=== PATIENT | female | born 1975 | race Asian ===

== ENCOUNTER 2024-10-29 10:43 | Outpatient (AMB) | payer MEDICAID, SELFPAY ==
--- NOTE | 2024-10-29 10:57 | A.OFFVIS_ITS ---
Intake Visit Reasons: Strep B UTIs Intake Note: PT PRESENTS TODAY FOR: NEW PT STREP B UTI UROLOGY MEDICATIONS: NONE BLOOD THINNERS: NONE Production Scheduler Required: Yes Accompanied by: Son Allergies No Known Allergies Allergy (Verified 10/29/24 11:02) HPI Comments Details: Ioana is a pleasant Afghani female. She is a patient of [facility]. She is seen for the following urologic conditions - persistent UTI symptoms Accompanied by his son Translation provided by qualified medical record librarians teacher - Dinora Primary symptom of urinary urge with frequency Minimal leakage Concerned about kidney pain Has been told she has a descending uterus Information from primary care indicates group B strep UTI On examination her kidney pain is musculoskeletal paraspinal muscle and sacrospinous ligament pain She is encouraged to increase her activity levels to maintain muscle mass UA today normal Bladder urgency symptoms could be managed by lifestyle changes including weight loss, dietary changes minimizing coffee, chocolate, spicy foods At this point in time does not seem to rise to a level requiring Pharmaceutical intervention Reassurance provided P.r.n. follow-up Review of Systems Const Denies chills and Denies fever(s) Card Reports no additional complaints and Denies syncope Resp Denies cough GI Denies abdominal pain and Denies heartburn Reports as per HPI and Denies change in libido Neuro Denies syncope Psych Denies change in libido Endo Denies change in libido Physical Exam Const General: cooperative, healthy appearing, comfortable and no acute distress Orientation/consciousness: patient oriented x3 HEENT Face and sinus: Yes normal facial exam Mouth: moist mucous membranes Neck Neck: Yes normal visual inspection, Yes full ROM and Yes trachea midline Chest Chest palpation & inspection: normal inspection of the chest Resp Effort & Inspection: normal respiratory effort, able to speak in complete sentences and no respiratory distress GI Inspection: Yes normal to inspection Back/Spine/Pelvis Cervical Spine: normal cervical lordosis Thoracic/Lumbar Spine: thoracic and lumbar spine normal to inspection Skin General skin exam: no rashes or lesions noted Neuro General: patient oriented x3, gait normal, tone normal and moves all extremities Extrem General: Yes normal to inspection and Yes capillary refill normal Results AMB Urinalysis, Automated UA Leukoctes 0 Debby/uL Last Edit by CANDELARIA Padron on 10/29/24 11:09 UA Nitrite Negative Last Edit by CANDELARIA Padron on 10/29/24 11:09 UA Urobilinogen 3.5 mg/dL Last Edit by Keerthi Dahl [facility] on 10/29/24 11:0 9 UA Protein 0 mg/dL Last Edit by Keerthi Dahl [facility] on 10/29/24 11:09 UA pH 6.0 Last Edit by Keerthi Dahl [facility] on 10/29/24 11:09 UA Blood 0 Edgar/uL Last Edit by Keerthi Dahl [facility] on 10/29/24 11:09 UA Specific [place] 1.005 Last Edit by Keerthi Dahl, [facility] on 10/29/24 11: 09 UA Ketone Negative Last Edit by Keerthi Dahl, [facility] on 10/29/24 11:09 UA Bilirubin 0 mg/dL Last Edit by Keerthi Dahl [facility] on 10/29/24 11:09 UA Glucose 0 mg/dL Last Edit by Keerthi Dahl [facility] on 10/29/24 11:09 Results Reviewed Results Reviewed: Laboratory Last Values Urine pH (Auto) 6.0 10/29/24 11:09 Specific [place] (Auto) 1.005 10/29/24 11:09 Urine Protein (Auto) 0 mg/dL 10/29/24 11:09 Glucose (UA)(Auto) 0 mg/dL 10/29/24 11:09 Urine Ketones (Auto) Negative 10/29/24 11:09 Urine Blood (Auto) 0 Edgar/uL 10/29/24 11:09 Urine Nitrite (Auto) Negative 10/29/24 11:09 Urine Bilirubin (Auto) 0 mg/dL 10/29/24 11:09 Urine Urobilinogen (Auto) 3.5 mg/dL 10/29/24 11:09 Leukocyte Esterase (Auto) 0 Debby/uL 10/29/24 11:09 Assessment & Plan Assessment & Plan (1) Urinary urgency: Code(s): R39.15 - Urgency of urination Category: Medical Plan P.r.n. follow-up Orders: Orders AMB Urinalysis Automated Today Z13.9 - Encounter for screening, unspecified Patient Instructions: This note is constructed using voice recognition software. While every effort has been made to ensure accuracy phone operator errors may have been included. Imaging studies, laboratory and physical exam results were discussed and reviewed in detail. No major barriers to patient understanding were identified. An opportunity to ask questions regarding the treatment plan was provided. All questions were answered. The patient expressed understanding and agreement with the above treatment plan. The patient is aware they should contact our office by phone for worsening of their current condition or the appearance of new urologic symptoms. Compliance is encouraged with any medications and followup testing that is ordered. It is a privilege to participate in the urologic care of your patient. If you have any questions or concerns regarding treatment for the above conditions, or other urologic issues, please do not hesitate to contact me. The office telephone contact is [phone]. Sincerely, Dr Octaviano Morrow MD, [facility] - Urology Compassionate Specialist Care for the Genitourinary System Coding Level of Care Code New Pt Level 3 (03865) Diagnoses Urinary urgency R39.15
--- OUTSIDE RECORDS SUMMARY | 2024-10-29 12:14 | XMS_ITS | Clinical Summary ---
Author Organization [employer] [facility] Address [address] [place] [address] Care Team Providers Care Safety Sitter Name Role Phone Unavailable Primary Care Provider Unavailabl e Encounters Date Type Department Care Team Description 09/17/2024 Population Health Risk Score [facility] Care [facility] (C3) Department [address] [place] [id number] Provider, Population Health Generic from Last 3 Months Social History Tobacco Use Types Packs/Day Years Used Date Smoking Tobacco: Never Assessed Comments Unknown Sex and Gender Information Value Date Recorded Sex Assigned at Not on file Legal Sex Female 9:30 PM EDT Gender Identity Not on file Sexual Orientation Not on file Plan of Treatment Health Maintenance Due Date Last Done Comments CT Colonography 1973 Colonoscopy 1973 Colorectal Cancer Screening 1973 Depression Screening 1973 FIT DNA/Cologuard 1973 FIT 1973 FOBT 1973 Lipid Panel 1973 SDOH Screening 1973 Sigmoidoscopy 1973 Disability Screening 1973 Alcohol/Substance Use Screening 1985 Tobacco Screening 1985 Family Planning (PISQ) 1988 Hepatitis C Screening 06/18/1991 Pap Smear 1994 Cervical Cancer Screening 06/18/2003 HPV/Cotest 06/18/2003 Mammogram 2013 IPV Vaccines (3 of 3 - Adult catch-up series) 06/26/2022 12/27/2021, 08/20/2021 Zoster Vaccines (1 of 2) 06/18/2023 COVID-19 Vaccine (5 - season) 2024 07/20/2022, 12/27/2021, 09/13/2021, Additional history exists Influenza Vaccine (#1) 2024 11/16/2023, 2021 DTaP/Tdap/Td Vaccines (3 - Td or Tdap) 05/18/2032 05/18/2022, 08/20/2021 RSV Patients and Patients Aged 60 years or older (1 - 1-dose 75+ series) 2048 Hepatitis B Vaccines Completed 03/16/2022, 12/27/2021, 08/20/2021 HIV Screening Completed 05/18/2022, 05/18/2022 Pneumococcal Vaccine: 50+ Years Completed 07/20/2022 HIB Vaccines Aged Out No longer eligi ble based on patient's age to complete this topic HPV Vaccines Aged Out No longer eligi ble based on patient's age to complete this topic Hepatitis A Vaccines Aged Out No long er eligible based on patient's age to complete this topic Meningococcal B Vaccine Aged Out No l onger eligible based on patient's age to complete this topic Meningococcal Vaccine Aged Out No flo janice eligible based on patient's age to complete this topic RSV under 20 months Aged Out No longe r eligible based on patient's age to complete this topic Rotavirus Vaccines Aged Out No longer eligible based on patient's age to complete this topic
--- OUTSIDE RECORDS SUMMARY | 2024-10-29 12:15 | XMS_ITS | Clinical Summary ---
Author Organization [address] [facility] Address [address] [place] [address] Phone Care Team Providers Care Job Boss Name Role Phone Tori Butler ORTHOTIST PROSTHETIST Primary Care Provider [phone] Allergies No known active allergies Medications metFORMIN (GLUCOPHAGE) 500 mg tablet Take 1 tablet (500 mg total) by mouth. 02/15/2024 Active empagliflozin (JARDIANCE) 25 mg tablet Take 1 tablet (25 mg total) by mouth. 06/06/2024 Active Social History Tobacco Use Types Packs/Day Years Used Date Smoking Tobacco: Never Assessed Comments Unknown Sex and Gender Information Value Date Recorded Sex Assigned at Not on file Legal Sex Female 9:11 PM EST Gender Identity Not on file Sexual Orientation Not on file Last Filed Vital Signs Vital Sign Reading Time Taken Comments Blood Pressure 128/80 07/16/2024 1:57 PM EDT Pulse 80 07/16/2024 1:57 PM EDT Temperature - - Respiratory Rate - - Oxygen Saturation - - Inhaled Oxygen Concentration - - Weight 86.9 kg (191 lb 8 oz) 07/16/2024 1:57 PM EDT Height 157.5 cm (5' 2 ) 07/16/2024 1:57 PM EDT Body Mass Index 35.03 07/16/2024 1:57 PM EDT Plan of Treatment Health Maintenance Due Date Last Done Comments Breast Cancer Screening 1973 Diabetes: Annual Foot Exam 06/18/1983 Diabetes: Annual Retina Eye Exam 06/18/1983 Cervical Cancer Screening: Pap Smear 1994 IPV Vaccines (3 of 3 - Adult catch-up series) 06/26/2022 12/27/2021, 08/20/2021 Colorectal Cancer Screening: Colonoscopy 03/24/2023 HIV Screening 03/24/2023 Social Influencers of Health Screening 03/24/2023 Zoster Vaccines (1 of 2) 06/18/2023 09/19/2021, 07/29 Depression Screening 02/28/2024 Diabetes: Annual Urine Albumin-Creatinine Ratio (uACR) 10/26/2024 10/27/2023, 07/20/2022 COVID-19 Vaccine ( season) 2024 07/20/2022, 12/27/2021, 09/13/2021, Additional history exists Influenza Vaccine (#1) 2024 11/16/2023, 2021 Diabetes: Blood Sugar Control Test (HGBA1C) 01/28/2025 07/29/2024 Diabetes: Annual GFR (Glomerular Filtration Rate) 06/24/2025 06/24/2024 Cholesterol Screening (Lipid Panel) 10/26/2028 10/27/2023, 10/27/2023, 07/20/2022 DTaP,Tdap,and Td Vaccines (3 - Td or Tdap) 05/18/2032 05/18/2022, 08/20/2021 MMR Vaccines Aged Out 09/19/2021, 08/20/2021 No lo nger eligible based on patient's age to complete this topic Varicella Vaccines Aged Out 09/19/2021, 08/20/2021 No longer eligible based on patient's age to complete this topic Hepatitis B Vaccines Completed 03/16/2022, 12/27/2021, 08/20/2021 Hepatitis C Screening Completed 05/18/2022 Pneumococcal Vaccine: 50+ Years Completed 07/20/2022 HIB Vaccines Aged Out No longer eligi ble based on patient's age to complete this topic HPV Vaccines Aged Out No longer eligi ble based on patient's age to complete this topic Hepatitis A Vaccines Aged Out No long er eligible based on patient's age to complete this topic Meningococcal ACWY Vaccine Aged Out N o longer eligible based on patient's age to complete this topic Meningococcal B Vaccine Aged Out No l onger eligible based on patient's age to complete this topic RSV Immunization Patients Under 20 months Aged Out No longer eligible based on patient's age to complete this topic Insurance MEDICAID - [place] Care Teams Job Boss Relationship Specialty Start Date End Date Tori Butler NP [address] [place] [address] PCP - General Family Medicine 07/04/24
--- OUTSIDE RECORDS SUMMARY | 2024-10-29 12:15 | XMS_ITS | Clinical Summary ---
Author Organization [facility] Address [address] [place] [address] Care Team Providers Care Vocational Psychologist Name Role Phone Sophie Garcia SENIOR C DEVELOPER Primary Care Provider [phone] Source Comments PLEASE NOTE, if this patient is a minor, it may be UNLAWFUL to discuss sensitive information that is contained in these records (such as FAMILY PLANNING, MENTAL HEALTH or SUBSTANCE ABUSE) with the minor patient's parent or other person without the patient's specific authorization.[facility] Allergies No known active allergies Medications calcium carbonate-vit D3-min 600 mg calcium- 400 unit tabletIndicati ons:Type 2 diabetes mellitus without complication, without long-term current use of insulin ([facility]) Take 1 Tablet by mouth 2 (two) times daily 90 Tablet 1 3 Active diclofenac sodium (VOLTAREN) 1 % gelIndications :Chronic bilateral low back pain with bilateral sciatica,Chron ic pain of left knee Apply 2 g topically 2 (two) times daily 200 g 1 3 Active blood-glucose meter monitoring kitIndications :Type 2 diabetes mellitus without complication, without long-term current use of insulin ([facility]) as needed for blood glucose monitoring Dispense Freeystyle 1 Each 3 Active blood sugar diagnostic (FREESTYLE LITE STRIPS) strips 1 Each daily. 100 Each 4 Active lancets (FREESTYLE LANCETS) 28 gauge Check glucose once daily 100 Each 5 4 Active lancing device misc 1 Device by miscellaneous route once daily 1 Each 1 4 Active alcohol swabs (ALCOHOL PADS) Use once daily 100 Each 11 4 Active acetaminophen (TYLENOL) 500 mg tabletIndicati ons:Caries Take 1 Tablet by mouth every 6 (six) hours as needed for pain 20 Tablet 4 Active hydrocortisone 0.5 % creamIndicatio ns:Generalized abdominal pain Apply topically 2 (two) times daily At rash at legs only with itching. 30 g 1 4 Active atorvastatin (LIPITOR) 10 mg tablet Take 1 Tablet by mouth nightly at bedtime 90 Tablet 2 4 Active CALCIUM ANTACID 300 mg (750 mg) chewable tabletIndicati ons:Dyspepsia Place 1 Tablet into mouth, chew and swallow once daily as needed for heartburn 120 Tablet 1 4 Active omeprazole (PRILOSEC) [address] capsuleIndicat ions:H. pylori infection TAKE ONE CAPSULE BY MOUTH TWICE DAILY BEFORE a meal 60 Capsule 1 4 Active empagliflozin (JARDIANCE) 25 mg tabIndications :Type 2 diabetes mellitus without complication, without long-term current use of insulin ([facility]) Take 1 Tablet by mouth every morning For diabetes 30 Tablet 5 5 Active phenazopyridin e (PYRIDIUM) 100 mg tabletIndicati ons:Dysuria Take 1 Tablet by mouth 2 (two) times daily 6 Tablet 5 Active sulfamethoxazo le-trimethopri m (BACTRIM DS) 800-160 mg per tablet Take 1 Tablet by mouth 2 (two) times daily 6 Tablet 5 Active ibuprofen 600 mg tabletIndicati ons:Chronic bilateral low back pain without sciatica Take 1 Tablet by mouth 3 (three) times daily as needed for pain. 90 Tablet 1 5 Active simethicone (MYLICON) 125 mg chewable tabletIndicati ons:Gas pain,Bloating Place 1 Tablet into mouth, chew and swallow every 6 (six) hours as needed for flatulence. 90 Tablet 1 5 Active metFORMIN (GLUCOPHAGE) 500 mg tabletIndicati ons:Type 2 diabetes mellitus without complication, without long-term current use of insulin ([facility]) TAKE ONE TABLET BY MOUTH TWICE DAILY WITH A MEAL FOR DIABETES 180 Tablet 1 5 Active Active Problems Problem Noted Date Diagnosed Date Periumbilical hernia 06/29/2024 Overview (07/17/2024): 07/16/24 [facility] IMPRESSION: 1.Umbilical hernia without obstruction or gangrene Plan: Observation. 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 06/26/24 CT Urogram IMPRESSION: 3.8 cm periumbilical fat-containing hernia. No urinary tract calculi or suspicious renal or urothelial lesion identified Positive QuantiFERON-TB Gold test 07/27/2022 Overview (07/27/2022): Placed ref to TB clinic Giardia 07/27/2022 History of Helicobacter pylori infection 023 Arthralgia 07/20/2022 Chronic bilateral low back pain without sciatica 07/20/2022 Type 2 diabetes mellitus wit hout complication, without long-term current use of insulin ([facility]) 05/19/2022 Class 2 severe obesity due t o excess calories with serious comorbidity and body mass index (BMI) of 35.0 to 35.9 in adult ([facility]) 05/18/2022 TB lung, latent 05/18/2022 Encounters Date Type Department Care Team Description 08/29/2024 11:00 AM EDT Office Visit [address] [address] Joaquina Carpenter, Jessie Gates, Community Health Worker 08/04/2024 Results Follow-Up [address] [address] Mabel Luu FNP 07/29/2024 3:20 PM EDT Office Visit [address] [address] Mabel Luu FNP from Last 3 Months Immunizations Immunization Administration Dates Next Due COVID-19,SARS-COV-2 VACCINE, UNSPECIFIED (US Admin) 12/27/2021,09/13/2021,08/20/2021 Hep B, Adult/Adol (PJZSNXA-A-NZEQF/RECOMBIVAX-ADULT) 03/16/2022,12/27/2021,08/20/2021 INFLUENZA, SEASONAL, INJECTABLE 08/20/2021 IPV (IPOL) 12/27/2021,08/20/2021 Influenza (FLUBLOK),recombinant,injectable,preservati ve Free 11/16/2023 MMR (MMR II/Priorix) 09/19/2021,08/20/2021 PNEUMOCOCCAL CONJUGATE PCV 20 (Prevnar 20) 07/20 Humansized COVID-19 Vac cine Bivalent, (REDDING PFIZER[employer] COVID-19 VACCINE BIVALENT, (REDDING CAP 07/20/2022 TDAP 08/20/2021 Td (adult), 5 Lf tetanus tox oid (Tenivac), preservative free 05/18/2022 Varicella (Varivax), Live Vaccine 09/19/2021, Family History Medical History Relation Name Comments No Known Problems Brother x3 No Known Problems Father No Known Problems Mother No Known Problems Sister x4 Relation Name Status Comments Brother x3 Alive Daughter x1 Father Alive Mother Alive Sister x4 Alive Son x4 Social History Tobacco Use Types Packs/Day Years Used Date Smoking Tobacco: Never Passive Smoke Exposure: Never Smokeless Tobacco: Never Tobacco Cessation:Counseling Given: Not Answered Alcohol Use Standard Drinks/Week Comments Never 0 (1 standard drink = 0.6 oz pur e alcohol) Social Connections Answer Date Recorded Connectedness 0 10/31/2023 Financial Resource Strain Answer Date R ecorded Financial Resource Strain 0 2022 Stress Answer Date Recorded Stress 0 05/18/2022 Physical Activity Answer Date Recorded Physical Activity 0 05/18/2022 Food Insecurity Answer Date Recorded Food 0 11/23/2023 Transportation Needs Answer Date Record ed Transportation 0 05/18/2022 Housing Stability Answer Date Recorded Housing 0 05/18/2022 Safety and Environment Answer Date Ga rded Safety 0 07/20/2022 Utilities Answer Date Recorded Utilities 0 05/18/2022 Employment Answer Date Recorded Stress 0 07/20/2022 Comments No Sex and Gender Information Value Date Recorded Sex Assigned at Female 05/19/2022 12:03 PM PDT Legal Sex Female 6:03 AM PST Gender Identity Female 05/19/2022 12:03 PM PDT Sexual Orientation Straight 05/19/2022 12 :03 PM PDT Last Filed Vital Signs Vital Sign Reading Time Taken Comments Blood Pressure 120/70 07/29/2024 3:18 PM EDT Pulse 80 07/29/2024 3:18 PM EDT Temperature 36.7 C (98.1 F) 07/29/2024 3:18 PM EDT Respiratory Rate 16 07/29/2024 3:18 PM EDT Oxygen Saturation 98% 07/29/2024 3:18 PM EDT Inhaled Oxygen Concentration - - Weight 88.2 kg (194 lb 6.4 oz) 07/29/2024 3:18 P M EDT Height 157.5 cm (5' 2 ) 06/14/2024 1:16 PM EDT Body Mass Index 35.56 06/14/2024 1:16 PM EDT Plan of Treatment Upcoming Encounters Date Type Department Care Team ([facility] st Contact Info) Description 12/11/2024 10:00 AM EDT Office Visit [facility] [address] [place] [address] Eduardo Sun, [facility] [address] [place] [address] Health Maintenance Due Date Last Done Comments HPV Screening 1973 Pap + HPV 1973 Cervical Cancer Screening 1994 Pap Smear 1994 Breast Cancer Screening (Mammogram) 2013 CT Colonography 2018 Colonoscopy 2018 Colorectal Cancer Screening 2018 FIT/gFOBT 2018 Fecal DNA 2018 Flexible Sigmoidoscopy 2018 Imm-Zoster, Recombinant (1 of 2) 06/18/2023 Dental Prophy 02/12/2024 08/11/2023 Alcohol and Drug Screen 02/28/2024 05/11/2023, 07/20 Dental BW 08/12/2024 08/11/2023, 12/27/2022 Dental Examination 08/12/2024 08/11/2023, 12/27/2022 Dental Perio Charting 08/12/2024 08/11/2023 Lipid Screening 10/26/2024 10/27/2023, 07/20/2022 Urine Albumin Creatinine Ratio Screening 10/26/2024 10/27/2023, 07/20/2022 Imm-Influenza (#1) 2024 11/16/2023, 08/20/2021 Hemoglobin A1c 10/29/2024 07/29/2024, 10/28, 08/11/2023, Additional history exists [id number] ( season) 2024 07/20/2022, 12/27/2021, 09/13/2021, Additional history exists Postponed from 10/29/2023 (Patient postponement) Retinopathy Screening 05/03/2025 05/03/2024, 023 Serum Creatinine 06/24/2025 06/24/2024, , 05/18/2022 Anxiety Screening 07/29/2025 07/29/2024 Hypertension Screening (#1) 07/29/2025 Diabetes Foot Exam 08/29/2025 08/29/2024 Tobacco Screening 08/29/2025 08/29/2024, 02/21/2023 Dental FMX/Pano 07/21/2028 07/20/2023, 12/27/2022 Imm-DTaP/Tdap/Td (3 - Td or Tdap) 05/18/2032 05/18/2022, 08/20/2021 Imm-Hepatitis B Discontinued 03/16/2022, 11/29, 08/20/2021 HIV Screening Completed 05/18/2022 Hepatitis B Screening Completed 05/18/2022, 023 Hepatitis C Screening Completed 05/18/2022 Imm-Pneumococcal 50+ Completed 07/20/2022 Depression Annual Screen Completed 07/29/2024 Cervical Ablation/Cold-Knife Conization Discontinued Cervical Cryotherapy Discontinued Colposcopy Discontinued Endometrial Biopsy Discontinued Excision/Leep Discontinued HPV Genotyping Discontinued Vaginal Pap Discontinued Vulvoscopy Discontinued Procedures Procedure Name Priority Date/Time Associated Diagnosis Comments SURESWAB ADVANCED BACTERIAL VAGINOSIS (BV), CT/NG, TMA Routine 07/29/2024 6:02 PM EDT Vaginal pain URINE CULTURE W ID & SENS Routine 07/29/2024 4:18 PM EDT RFLX - REFLEXIVE URINE CULTURE Routine 07/29/2024 4:18 PM EDT Vaginal pain CELIAC DISEASE COMPREHENSIVE PANEL Routine 07/29/2024 4:18 PM EDT Gas pain HEMOGLOBIN GLYCOSYLATED A1C Routine 07/29/2024 4:18 PM EDT Vaginal pain URINALYSIS, COMPLETE W/REFLEX TO CULTURE Routine 07/29/2024 4:18 PM EDT Vaginal pain BASIC METABOLIC PANEL CALCIUM TOTAL STAT 06/24/2024 3:32 PM EDT Hematuria, unspecified type EYE EXAM 05/03/2024 3:00 AM EST LIPID PANEL Routine 10/27/2023 4:52 PM EDT Type 2 diabetes mellitus without complication, without long-term current use of insulin ([facility]) MICROALBUMIN/CREATININ E RATIO, URINE, RANDOM Routine 10/27/2023 4:52 PM EDT Type 2 diabetes mellitus without complication, without long-term current use of insulin ([facility]) COMP PERIODONTAL EVALUATION - NEW/EST PATIENT Routine 08/11/2023 9:40 AM EDT Chronic gingivitis, plaque induced Encounter for dental examination and cleaning with abnormal findings BITEWINGS - FOUR RADIOGRAPHIC IMAGES Routine 08/11/2023 9:40 AM EDT Chronic gingivitis, plaque induced Encounter for dental examination and cleaning with abnormal findings PROPHYLAXIS - ADULT Routine 08/11/2023 9 :40 AM EDT Chronic gingivitis, plaque induced Encounter for dental examination and cleaning with abnormal findings PERIODIC ORAL EVALUATION ESTABLISHED PATIENT Routine 08/11/2023 9:40 AM EDT Chronic gingivitis, plaque induced Encounter for dental examination and cleaning with abnormal findings 17 PANORAMIC RADIOGRAPHIC IMAGE Routine 07/20/2023 2:00 PM EDT Caries HIV 1/2 AG & AB W/RFLX (4TH GEN) Routine 05/18/2022 3:23 PM EDT Refugee health examination Glycosuria Non morbid obesity TB lung, latent HEPATITIS B SURFACE AG, EIA WITH REFLEX CONFIRM Routine 05/18/2022 3:23 PM EDT Refugee health examination Glycosuria Non morbid obesity TB lung, latent HEPATITIS C AB W/RFLX HCV RNA, QT, RT PCR Routine 05/18/2022 3:23 PM EDT Refugee health examination Glycosuria Non morbid obesity TB lung, latent from Last 3 Months or Most Recently Relevant to Health Maintenance Results * SURESWAB ADVANCED BACTERIAL VAGINOSIS (BV), CT/NG, TMA Vaginal Vaginal Routine (07/29/2024 6:02 PM EDT) SURESWAB(R) ADV BACTERIAL VAGINOSIS (BV), TMA NEGATIVE NEGATIVE [facility] CHLAMYDIA TRACHOMATIS RNA, TMA NOT DETECTED NOT DETECTED [facility] NEISSERIA GONORRHOEAE RNA, TMA NOT DETECTED NOT DETECTED [facility] COMMENT [facility] Vaginal Vaginal structure / Unknown 07/29/2024 6:02 PM EDT 07/29/2024 6:02 PM EDT Narrative [facility] - 07/30/2024 4:57 PM EDT SPLIT 07/29/2024 FROM [id number] For additional information, please refer to https://education.Jiuxian.com/faq/AVW611 (This link is being provided for information/ educational purposes only.) Mabel Luu [facility] - MICROBIOLOGY AMBULATOR Y Final Result [facility] [address] [address], [facility] [address] [place] [address] * CELIAC DISEASE COMPREHENSIVE PANEL Routine (07/29/2024 4:18 PM EDT) INTERPRETATION See Note [facility] Comment: No serological evidence of celiac disease. tTG IgA may normalize in individuals with celiac disease who maintain a gluten-free diet. Consider HLA DQ2 and DQ8 testing to rule out celiac disease. Celiac disease is extremely rare in the absence of DQ2 or DQ8. TISSUE TRANSGLUTAMINASE ANTIBODY, IGA <1.0 14.9 U/mL [facility] Comment: Value Interpretation ----- <15.0 Antibody not detected > or = 15.0 Antibody detected IMMUNOGLOBULIN A 205 47 - 310 mg/dL [facility] Serum Blood / Unknown 07/29/2024 4 :18 PM EDT 07/29/2024 4:19 PM EDT Narrative [facility] - 08/01/2024 5:22 AM EDT SPECIMEN COLLECTED AT PROVIDER OFFICE. us Mabel Luu SENIOR C DEVELOPER LAB - BLOOD DRAW Final Resul t [facility] [address] [place] [id number], [employer] [facility] [address] [address] * (ABNORMAL) URINE CULTURE W ID & SENS Routine (07/29/2024 4:18 PM EDT) CULTURE See Note(A) [facility] Comment: CULTURE, URINE, ROUTINE Micro Number: [id number] Test Status: Final Specimen Source: Urine Specimen Quality: Adequate Result: 10,000-49,000 CFU/mL of Group B Streptococcus isolated Beta-hemolytic streptococci are predictably susceptible to Penicillin and other beta-lactams. Susceptibility testing not routinely performed. Please contact the laboratory within 3 days if susceptibility testing is desired. Comment: Erythromycin and clindamycin are not recommended for treatment of urinary tract infections, but clindamycin may be useful for treatment of rectovaginal colonization or infection. Any amount of group B Streptococcus in urine specimens obtained from females is a marker of genital tract colonization. If this patient is , please refer to ACOG guidelines for appropriate screening and management of women. COMMENT: Additional non-predominating organism(s) isolated. These organisms, commonly found on external and internal genitalia, are considered colonizers. No further testing performed. 07/29/2024 4:18 PM EDT 07/29/2024 4:19 PM EDT Narrative [facility] - 08/01/2024 5:22 AM EDT SPECIMEN COLLECTED AT PROVIDER OFFICE. us Mabel Luu [facility] - MICROBIOLOGY AMBULATOR Y Final Result Performing Organization Address [facility]/ZIP Co de Phone Number [facility] [address] [address], [facility] [address] [place] [address] * (ABNORMAL) URINALYSIS, COMPLETE W/REFLEX TO CULTURE Urine Routine (07/29/2024 4:18 PM EDT) COLOR YELLOW YELLOW [facility] APPEARANCE CLEAR CLEAR [facility] SPECIFIC GRAVITY 1.005 1.001 - 1.035 [facility] URINE PH 7.0 5.0 - 8.0 [facility] GLUCOSE NEGATIVE NEGATIVE [facility] BILIRUBIN NEGATIVE NEGATIVE [facility] KETONES NEGATIVE NEGATIVE [facility] OCCULT BLOOD NEGATIVE NEGATIVE [facility] URINE PROTEIN NEGATIVE NEGATIVE [facility] NITRITE NEGATIVE NEGATIVE [facility] LEUKOCYTE ESTERASE 2+(A) NEGATIVE [facility] URINE LEUKOCYTES 0-5 0 - 5 /HPF [facility] RBC NONE SEEN < OR = 2 [facility] SQUAMOUS EPITHELIAL CELLS 0-5 < OR = 5 /HPF [facility] BACTERIA NONE SEEN NONE SEEN [facility] HYALINE CAST 0-5(A) NONE SEEN /LPF [facility] SEE NOTE See Below [facility] Comment: This urine was analyzed for the presence of WBC, RBC, bacteria, casts, and other formed elements. Only those elements seen were reported. Urine Urine specimen / Unknown 07/29/2024 4:18 PM EDT 07/29/2024 4:19 PM EDT Narrative [facility] - 08/01/2024 5:22 AM EDT SPECIMEN COLLECTED AT PROVIDER OFFICE. Mabel Luu [facility] URINE AMBULATORY Edited Result - Final Performing Organization Address [facility] Co de Phone Number [facility] [address] [address], [facility] [address] [place] [address] * RFLX - REFLEXIVE URINE CULTURE Routine (07/29/2024 4:18 PM EDT) REFLEXIVE URINE CULTURE See Below [facility] Comment:CULTURE INDICATED - RESULTS TO FOLLOW 07/29/2024 4:18 PM EDT 07/29/2024 4:19 PM EDT Narrative [email or web address] - 08/01/2024 5:22 AM EDT SPECIMEN COLLECTED AT PROVIDER OFFICE. Mabel [facility] - MICROBIOLOGY AMBULATOR Y Edited Result - Final Performing Organization Address [facility]/ZIP Co de Phone Number [facility] [address] [address], [facility] [address] [address] * (ABNORMAL) HEMOGLOBIN GLYCOSYLATED A1C Routine (07/29/2024 4:18 PM EDT) HEMOGLOBIN A1C 7.1(H) <5.7 % [facility] Comment: For someone without known diabetes, a hemoglobin A1c value of 6.5% or greater indicates that they may have diabetes and this should be confirmed with a follow-up test. For someone with known diabetes, a value <7% indicates that their diabetes is well controlled and a value greater than or equal to 7% indicates suboptimal control. A1c targets should be individualized based on duration of diabetes, age, comorbid conditions, and other considerations. Currently, no consensus exists regarding use of hemoglobin A1c for diagnosis of diabetes for children. Blood Blood / Unknown 07/29/2024 4 :18 PM EDT 07/29/2024 4:19 PM EDT Narrative [facility] - 08/01/2024 5:22 AM EDT SPECIMEN COLLECTED AT PROVIDER OFFICE. us Mabel [facility] - BLOOD DRAW Edited Resu lt - Final Performing Organization Address [facility]/ZIP Co de Phone Number [facility] [address] [address], [facility] [address] [address] * (ABNORMAL) BASIC METABOLIC PANEL CALCIUM TOTAL (06/24/2024 3:32 PM EDT) GLUCOSE 184(H) 65 - 99 mg/dL [facility] Comment: Fasting reference interval For someone without known diabetes, a glucose value >125 mg/dL indicates that they may have diabetes and this should be confirmed with a follow-up test. UREA NITROGEN (BUN) 20 7 - 25 mg/dL [facility] CREATININE (blood) 0.78 0.50 - 1.03 mg/dL [facility] EGFR 92 > OR = 60 mL/min/1. 73m2 [facility] BUN/CREATININE RATIO SEE NOTE: [facility] [place] [facility] Comment: Not Reported: BUN and Creatinine are within reference range. SODIUM 137 135 - 146 mmol/L [facility] POTASSIUM 4.0 3.5 - 5.3 mmol/L [facility] CHLORIDE 102 98 - 110 mmol/L [facility] CARBON DIOXIDE 28 20 - 32 mmol/L [facility] CALCIUM 9.7 8.6 - 10.4 mg/dL [facility] 0091 Blood Blood / Unknown 06/24/2024 3 :32 PM EDT 06/24/2024 3:33 PM EDT Tori Butler [facility] - BLOOD DRAW Final Result Buck Mason [facility] [address] [place] [address], [facility] [address] [place] [phone] * EYE EXAM (05/03/2024 3:00 AM EST) 05/03/2024 3:00 AM EST Teresa Whaley PA-C OTHER Final Resul t * MICROALBUMIN/CREATININE RATIO, URINE, RANDOM (10/27/2023 4:52 PM EDT) CREATININE, RANDOM URINE 121 20 - 275 mg/dL [facility] MICROALBUMIN <0.2 mg/dL [facility] Comment: Reference Range Not established MICROALBUMIN/CREA TININE RATIO, RANDOM URINE NOTE <30 [facility] Comment: NOTE: The urine albumin value is less than 0.2 mg/dL therefore we are unable to calculate excretion and/or creatinine ratio. The ADA defines abnormalities in albumin excretion as follows: Albuminuria Category Result (mg/g creatinine) Normal to Mildly increased <30 Moderately increased 30-299 Severely increased > OR = 300 The ADA recommends that at least two of three specimens collected within a 3-6 month period be abnormal before considering a patient to be within a diagnostic category. Urine Urine specimen / Unknown 10/27/2023 4:52 PM EDT 10/27/2023 4:53 PM EDT Sophie Amayamichealjennifer [facility] URINE AMBULATORY Final Res ult [facility] [address] [address], [employer] [address] [address] * (ABNORMAL) LIPID PANEL (10/27/2023 4:52 PM EDT) CHOLESTEROL, TOTAL 135 <200 mg/dL [facility] HDL CHOLESTEROL 46(L) > OR = 50 mg/dL [facility] TRIGLYCERIDES 150(H) <150 mg/dL [facility] LDL-CHOLESTEROL 66 99 mg/dL (calc) [facility] Comment: Reference range: <100 Desirable range <100 mg/dL for primary prevention; <70 mg/dL for patients with CHD or diabetic patients with > or = 2 CHD risk factors. LDL-C is now calculated using the Gabino-Samaria calculation, which is a validated novel method providing better accuracy than the Friedewald equation in the estimation of LDL-C. Gabino SS et al. AGUILA. 2013;310(19): 3050-8633 (http://education.Sparkroad/faq/SMG508) CHOL/HDLC RATIO 2.9 <5.0 (calc) [facility] NON-HDL CHOLESTEROL 89 <130 mg/dL (calc) [facility] Comment: For patients with diabetes plus 1 major ASCVD risk factor, treating to a non-HDL-C goal of <100 mg/dL (LDL-C of <70 mg/dL) is considered a therapeutic option. Blood Blood / Unknown 10/27/2023 4 :52 PM EDT 10/27/2023 4:53 PM EDT Sophie Garcia SENIOR C DEVELOPER LAB - BLOOD DRAW Final Result Performing Organization Address [facility] Co de Phone Number [facility] [address] [place] [address], [facility] [address] [address] * HEP C AB W/RLFX HCV RNA (for all adults >/= 18 yrs, all women, and all unaccompanied minors) (05/18/2022 3:23 PM EDT) HEPATITIS C ANTIBODY NON-REACT EMILIO NON-REACT EMILIO [facility] SIGNAL TO CUT-OFF <0.02 <1.00 [facility] Comment: HCV antibody was non-reactive. There is no laboratory evidence of HCV infection. In most cases, no further action is required. However, if recent HCV exposure is suspected, a test for HCV RNA (test code 13885) is suggested. For additional information please refer to http://education.Jiuxian.com/faq/YYK15s7 (This link is being provided for informational/ educational purposes only.) Blood Blood / Unknown 05/18/2022 3 :23 PM EDT 05/18/2022 3:24 PM EDT Narrative [facility] - 05/24/2022 8:30 PM EDT COLLECTION KIT GIVEN TO PATIENT. PATIENT ADVISED TO RETURN. Kelsey Pedraza PA-C LAB - BLOOD DRAW Edited Resu lt - Final Performing Organization Address [facility] Co de Phone Number [email or web address] [address] [address], [facility] [address] [address] * HIV 1/2 AG & AB W/RFLX (Required for 13 yrs to 64 yrs) (05/18/2022 3:23 PM EDT) HIV AG/AB, 4TH GEN NON-REAC TIVE NON-REAC TIVE [employer] Comment: HIV-1 antigen and HIV-1/HIV-2 antibodies were not detected. There is no laboratory evidence of HIV infection. PLEASE NOTE: This information has been disclosed to you from records whose confidentiality may be protected by state law. If your state requires such protection, then the state law prohibits you from making any further disclosure of the information without the specific written consent of the person to whom it pertains, or as otherwise permitted by law. A general authorization for the release of medical or other information is NOT sufficient for this purpose. For additional information please refer to http://education.[employer].com/faq/JOL030 (This link is being provided for informational/ educational purposes only.) The performance of this assay has not been clinically validated in patients less than 2 years old. Blood Blood / Unknown 05/18/2022 3 :23 PM EDT 05/18/2022 3:24 PM EDT Narrative [facility] - 05/24/2022 8:30 PM EDT COLLECTION KIT GIVEN TO PATIENT. PATIENT ADVISED TO RETURN. Kelsey Pedraza PA-C LAB - BLOOD DRAW Final Resul t [employer] [address] [place] [id number], [facility] [address] [address] * HEPATITIS B SURFACE AG, EIA WITH REFLEX CONFIRM (05/18/2022 3:23 PM EDT) HEPATITIS B SURFACE ANTIGEN NON-REACT EMILIO NON-REACT EMILIO [facility] Blood Blood / Unknown 05/18/2022 3 :23 PM EDT 05/18/2022 3:24 PM EDT Narrative [facility] - 05/24/2022 8:30 PM EDT COLLECTION KIT GIVEN TO PATIENT. PATIENT ADVISED TO RETURN. us Kelsey Pedraza PA-C LAB - BLOOD DRAW Edited Resu lt - Final [facility] [address] [address], [facility] [address] [place] [address] from Last 3 Months or Most Recently Relevant to Health Maintenance [place] [address] ACO Care Teams Vocational Psychologist Relationship Specialty Start Date End Date Sophie Garcia FNP [facility] [place] [address] PCP - General Internal Medicine 07/28/22
== END 2024-10-29 12:05 | disposition home or self-care (01) ==
LOC: HO.HUSH 10:45
PROVIDERS: Visit Provider Urology
DX: Z13.9 Encounter for screening, unspecified (principal); R39.15 Urgency of urination
CPT/HCPCS: 99203

== ENCOUNTER → 2024-10-29 10:43 | Outpatient (BNVA) | payer MEDICAID, SELFPAY | PROVIDERS: Visit Provider Urology | DX: R39.15 Urgency of urination (principal) | CPT/HCPCS: 81003; 99202 ==